=== PATIENT | male | born 1960 | race Caucasian/White ===

== ENCOUNTER 2019-02-15 14:03 | Observation (INO) ==
[2019-02-15] MEDS ORDERED: Isovue-370 500 ML BOTTLE IVP ONE (14:36)
[2019-02-15] MEDS ORDERED: Pantoprazole 40 MG VIAL IVP ONE (14:37)
[2019-02-15] MEDS ORDERED: 0.9 % Sodium Chloride 1,000 ML IVC ONE (14:38)
--- NOTE | 2019-02-15 14:47 | Emergency Department Note ---
Disposition Clinical Impression: Diverticulosis, Rectal bleeding Disposition: Admitted As Inpatient General Adult HPI - General Chief complaint: ED Abdominal Pain Stated complaint: rectal bleeding Time Seen by Provider: 02/15/19 14:12 Source: patient Mode of arrival: ambulatory Limitations: no limitations Nursing Notes Reviewed: Yes Vital Signs Reviewed: Yes - History of Present Illness HPI Narrative: Patient presents to the emergency department for evaluation of rectal bleeding. Patient states that he had severe epigastric pain last night with significant dyspepsia and reflux, and reports consuming multiple rolaids last night in an effort to alleviate his discomfort. He says that he got up to use the bathroom this morning, and found bright red blood filling the toilet bowel when he went to clean himself. He also reports cramping lower abdominal pain. Patient reports a second episode of rectal bleeding this morning, which prompted him to come in for evaluation. He does report significant stressors, as his father 2 days ago and there is a difficult relationship with his late father's . He denies any prior bleeding episodes, though he states he has had some bloody stools in the past. He reports having had two colonoscopies in the past, which showed polyps, but no other known abnormalities. He does report some nausea and shortness of breath at this time, but denies chest pain, fevers, chills, or other concerns at this time. Pt Subjective Complaint: rectal bleeding Onset (ago): hour(s) Pain Scale: 4 Quality: aching - Related Data Home Medications Medication Instructions Recorded Confirmed Amlodipine Besylate 10 mg PO DAILY 02/15/19 02/15/19 Brexpiprazole [Rexulti] 3 mg PO HS 02/15/19 02/15/19 Diclofenac Sodium 1 appl TP QID 02/15/19 02/15/19 Losartan Potassium 100 mg PO HS 02/15/19 02/15/19 Sertraline [Zoloft] 200 mg PO DAILY 02/15/19 02/15/19 clonazePAM [Clonazepam] 1 mg PO BID PRN 02/15/19 02/15/19 lamoTRIgine [Lamictal Xr] 200 mg PO DAILY 02/15/19 02/15/19 Allergies Allergy/AdvReac Type Severity Reaction Status Date / Time Penicillins [PCN] AdvReac Swelling Verified 10/23/18 13:24 of Lip/Tongue/Throat All systems ED: reviewed and negative except as stated. Constitutional: Denies: fever, chills, weakness, weight change Cardiovascular: Denies: chest pain, palpitations, dyspnea on exertion, edema, syncope Respiratory: Reports: dyspnea. Denies: cough Gastrointestinal: Reports: abdominal pain, hematochezia, other (dyspepsia) Musculoskeletal: Reports: back pain, arthralgia Integumentary: Denies: rash, abrasion, lesions Neurological: Denies: headache, weakness, numbness, paresthesias, confusion, abnormal gait, vertigo Past Medical History - Past Medical History Medical history: Reports: non-contributory, hypertension Surgical history: Reports: no surgical history Psychiatric history: Reports: anxiety, bipolar, depression - Social History Smoking Status: Never smoker Smokeless Tobacco Status: No Alcohol use: Reports: none Drug use: Reports: none Physical Exam - General Limitations: no limitations General appearance: alert, in no apparent distress - Head Head exam: atraumatic, normocephalic, normal inspection - Neck Neck exam: Present: normal inspection, full ROM, trachea midline - Chest Chest inspection: Present: normal inspection, symmetric chest wall rise - Respiratory Respiratory exam: Present: normal lung sounds bilaterally - Cardiovascular Cardiovascular exam: Present: regular rate, normal rhythm, normal heart sounds, +S1, +S2 - Abdominal Exam Abdominal exam: Present: soft, tenderness, hyperactive bowel sounds Abdominal tenderness: Present: epigastrium, moderate - Rectal Exam Farm Agent present during exam: Yes Rectal exam: Present: normal inspection, normal rectal tone. Absent: hemorrhoids, tenderness - Extremities Exam Extremities exam: Present: normal inspection, full ROM. Absent: tenderness, pedal edema - Neurological Exam Neurological exam: Present: alert, oriented X3 - Psychiatric Psychiatric exam: Present: normal affect, normal mood Course Course Narrative: Vital signs reviewed. At this time, we will get basic laboratory studies, as well as CT of the abdomen and pelvis. Orders placed for insertion of second IV, type and screen, and 80mg IV protonix. Anticipate hospital admission for further evaluation and management of GI bleed pending results of ED workup. - Reevaluation(s) Reevaluation #1: Laboratory and imaging studies reviewed. Initial hemoccult was negative; however, repeat exam and hemoccult testing was positive. Workup is largely unremarkable, with exception of diverticulosis noted on imaging. Patient will be admitted to the hospitalist service for further management, and has been accepted for admission. Vital Signs Temperature 99.2 F 02/15/19 14:04 Pulse Rate 85 02/15/19 14:04 Respiratory Rate 18 02/15/19 14:04 Blood Pressure 154/99 02/15/19 14:04 O2 Sat by Pulse Oximetry 97 02/15/19 14:04 Temperature 99.2 F 02/15/19 14:04 Pulse Rate 71 02/15/19 17:05 Respiratory Rate 16 02/15/19 17:05 Blood Pressure 131/92 02/15/19 17:05 O2 Sat by Pulse Oximetry 97 02/15/19 17:05 Oxygen Delivery Oxygen Delivery Room Air Medical Decision Making - Medical Records Medical records reviewed: Yes I reviewed the patient's medical records. - Lab Data Lab results reviewed: Yes I reviewed the patient's lab results. Result diagrams: 02/15/19 14:46 02/15/19 14:46 Lab Results 02/15/19 02/15/19 02/15/19 Range/Units 14:38 14:46 14:46 WBC 5.8 (4.3-11.1) K/mcL RBC 4.43 (4.19-5.50) M/mcL Hgb 14.7 (12.9-16.9) g/dL Hct 41.1 (37.5-50.1) % MCV 92.8 (83.0-100.0) fL MCH 33.2 (28.0-33.3) pg MCHC 35.8 H (31.6-35.5) g/dL RDW 11.8 (11.5-14.5) % Plt Count 181 (140-400) K/mcL MPV 9.4 (9.4-12.4) fL Immature Gran % 0.7 (0-4) % Seg Neutrophils % 69.6 % Lymphocytes % 21.4 % Monocytes % 6.4 % Eosinophils % 1.0 % Basophils % 0.9 % Neutrophils # 4.0 (1.6-8.9) K/mcL Lymphocytes # 1.2 (0.6-4.6) K/mcL Monocytes # 0.4 (0.0-1.3) K/mcL Eosinophils # 0.1 (0.0-0.6) K/mcL Basophils # 0.1 (0.0-0.2) K/mcL PT (9.4-12.1) Seconds INR Sodium 138 (136-145) mEq/L Potassium 3.7 (3.5-5.1) mEq/L Chloride 105 (98-107) mEq/L Carbon Dioxide 25 (23-29) mEq/L BUN 13 (6-20) mg/dL Creatinine 0.96 (0.70-1.30) mg/dL Est GFR ( Amer) > 60 (> 60) Est GFR (Non-Af Amer) > 60 (> 60) BUN/Creatinine Ratio 14 (6-26) Glucose 98 (70-105) mg/dL Calculated Osmolality 286 (280-300) Calcium 9.6 (8.6-10.3) mg/dL Total Bilirubin 0.6 (0.3-1.0) mg/dL AST 23 (13-39) Units/L ALT 31 (7-52) Units/L Alkaline Phosphatase 85 (34-104) Units/L Serum Total Protein 6.5 (6.4-8.9) g/dL Albumin 4.3 (3.5-5.7) g/dL Globulin 2.2 L (2.4-3.5) g/dL Albumin/Globulin Ratio 2.0 (1.1-2.2) Stool Occult Bld Scrn Negative (Negative) Blood Type Antibody Screen 02/15/19 02/15/19 02/15/19 Range/Units 14:46 14:46 15:17 WBC (4.3-11.1) K/mcL RBC (4.19-5.50) M/mcL Hgb (12.9-16.9) g/dL Hct (37.5-50.1) % MCV (83.0-100.0) fL MCH (28.0-33.3) pg MCHC (31.6-35.5) g/dL RDW (11.5-14.5) % Plt Count (140-400) K/mcL MPV (9.4-12.4) fL Immature Gran % (0-4) % Seg Neutrophils % % Lymphocytes % % Monocytes % % Eosinophils % % Basophils % % Neutrophils # (1.6-8.9) K/mcL Lymphocytes # (0.6-4.6) K/mcL Monocytes # (0.0-1.3) K/mcL Eosinophils # (0.0-0.6) K/mcL Basophils # (0.0-0.2) K/mcL PT 12.1 (9.4-12.1) Seconds INR 1.1 Sodium (136-145) mEq/L Potassium (3.5-5.1) mEq/L Chloride (98-107) mEq/L Carbon Dioxide (23-29) mEq/L BUN (6-20) mg/dL Creatinine (0.70-1.30) mg/dL Est GFR ( Amer) (> 60) Est GFR (Non-Af Amer) (> 60) BUN/Creatinine Ratio (6-26) Glucose (70-105) mg/dL Calculated Osmolality (280-300) Calcium (8.6-10.3) mg/dL Total Bilirubin (0.3-1.0) mg/dL AST (13-39) Units/L ALT (7-52) Units/L Alkaline Phosphatase (34-104) Units/L Serum Total Protein (6.4-8.9) g/dL Albumin (3.5-5.7) g/dL Globulin (2.4-3.5) g/dL Albumin/Globulin Ratio (1.1-2.2) Stool Occult Bld Scrn Positive A (Negative) Blood Type O POSITIVE Antibody Screen NEGATIVE - Radiology Data Radiology results reviewed: Yes I reviewed the patient's radiology results. - EKG Data EKG #1 EKG results narrative: EKG performed at 16:14 demonstrates NSR with rate [address] or T wave a bnormalities. No significant changes from prior study dated 05/29/2018. Critical Care Time Critical Care Time: Yes Total Critical Care Time: 35 Attestation: Critical care time 35 minutes managing patient's GI bleed. Attestation Statement - Attestation Attestation: Patient was seen with resident physician. I reviewed the history, physical, assessment and plan, and agree with the findings. I also personally evaluated this patient and had [id number] time with this patient. 58-year-old male presents emergency Department with bright red blood per rectum. Patient states she has had several episodes of bleeding from his rectum since this morning. He notes that last night he had a lot of esophageal reflux. He also had some crampy abdominal pain. He had some nausea and the throwing up in his mouth but no vomiting. He has not had diarrhea. He said the second episode scared him enough to come in. No history of bleeding disorders no history of ulcers no history of hemorrhoids. Review of systems as above remainder negative. Physical exam vital signs on arrival were stable. ENT is unremarkable. Heart regular rhythm and rate. Lungs clear. Abdomen is soft without guarding or rigidity. There is some mild tenderness in lower abdomen. Extremities are unremarkable. Neurologically intact. Skin no rashes. Psych normal. ED course. Patient had pictures of the stool which clearly showed blood. He d id not have hemorrhoids per resident examination. With his history of reflux we will start him on a proton pump inhibitor acutely we will also get a type and screen and lab tests. Initial H&H was okay. Hemoccult was positive. CT scan of the abdomen and pelvis revealed diverticulosis. I think is likely got bleeding from that. I think his abdominal discomfort is more cramping sensation with the colon trying to evacuate the blood. We spoke with the hospitalist service agreed to accept the patient. Patient will need to be admitted for serial H&H's and further evaluation as indicated. I agree with the resident physician assessment and plan. Critical care time 35 minutes managing patient's GI bleed.
[2019-02-15] MEDS ORDERED: Ondansetron 4 MG/2 ML VIAL IVP ONE (14:50)
[2019-02-15 15:23] LABS: Basophils # 0.1 K/mcL (0.0-0.2); Basophils % 0.9 %; Eosinophils # 0.1 K/mcL (0.0-0.6); Hematocrit 41.1 % (37.5-50.1); Hemoglobin 14.7 g/dL (12.9-16.9); Immature Granulocytes % 0.7 % (0-4); Lymphocytes # 1.2 K/mcL (0.6-4.6); Lymphocytes % 21.4 %; Mean Corpuscular HGB Conc 35.8 g/dL (31.6-35.5); Mean Corpuscular Hemoglobin 33.2 pg (28.0-33.3); Mean Corpuscular Volume 92.8 fL (83.0-100.0); Mean Platelet Volume 9.4 fL (9.4-12.4); Monocytes # 0.4 K/mcL (0.0-1.3); Monocytes % 6.4 %; Platelet Count 181 K/mcL (140-400); Red Blood Count 4.43 M/mcL (4.19-5.50); Red Cell Distribution Width 11.8 % (11.5-14.5); Segmented Neutrophils % 69.6 %
[2019-02-15 15:37] LABS: INR 1.1; Prothrombin Time 12.1 Seconds (9.4-12.1)
[2019-02-15 15:49] LABS: Alanine Aminotransferase 31 Units/L (7-52); Albumin 4.3 g/dL (3.5-5.7); Alkaline Phosphatase 85 Units/L (34-104); Aspartate Amino Transferase 23 Units/L (13-39); BUN/Creatinine Ratio 14 (6-26); Bilirubin,Total 0.6 mg/dL (0.3-1.0); Blood Urea Nitrogen 13 mg/dL (6-20); Calcium 9.6 mg/dL (8.6-10.3); Carbon Dioxide 25 mEq/L (23-29); Chloride 105 mEq/L (98-107); Globulin 2.2 g/dL (2.4-3.5); Glucose 98 mg/dL (70-105); Osmolality,Calculated 286 (280-300); Potassium 3.7 mEq/L (3.5-5.1); Sodium 138 mEq/L (136-145); Total Protein 6.5 g/dL (6.4-8.9); eGFR For Non-African Americans > 60 (> 60)
[2019-02-15] MEDS ORDERED: *HR* LORazepam 2 MG/ML VIAL IVP ONE (16:32)
[2019-02-15] MEDS ORDERED: Ondansetron 4 MG/2 ML VIAL IVP PRN (17:04)
[2019-02-15] MEDS ORDERED: Naloxone 0.4 MG/ML INJ IVP PRN (17:04)
--- NOTE | 2019-02-15 17:15 | Internal Med History&Physical ---
Date of Encounter: 02/15/19 Time of Encounter: 17:09 Internal Medicine - H&P: HPI Chief complaint: blood in stool Admitted From: Home Plans for Post Hospital Care: Home History of present illness: Mr. Pollack is a 58 year old male with PMH HTN and depression presented to [facility] on 02/15/19 with complaints of ABD pain and BRBPR. He was olaced in observation status for further work-up and treatment. Information obtained from chart review and patient report. Patient reported ABD discomfort that start evening prior to arrival. Described as achy and throbbing at times. Localized to mid-abdomen. No aggravating or alleviating factors. Patient also reported "acid reflex sensation" through the night. Says he took several doses of tums with relief. Says he woke up this morning and had 3 episodes of stool with bright red blood. After third episode he decided to come to the ER. Has some mild ABD discomfort but overall improved. No further bloody stools. Denied Etoh use, no steroid or NSAID use. Past Med Surg Social Fam HX - Past Medical History Medical history: non-contributory, hypertension Additional medical history: Bipolar Psychiatric history: anxiety, bipolar, depression - Past Surgical History Surgical History: no surgical history Additional surgical history: left shoulder - Social History Smoking Status: Never smoker Smokeless Tobacco Status: No Alcohol use: none Drug use: none - Additional Family History Additional family history: family hx reviewed and non-contributory Internal Medicine - H&P: Meds Amlodipine Besylate 10 mg PO DAILY 02/15/19 [History] Brexpiprazole [Rexulti] 3 mg PO HS 02/15/19 [History] Diclofenac Sodium 1 appl TP QID 02/15/19 [History] Losartan Potassium 100 mg PO HS 02/15/19 [History] Sertraline [Zoloft] 200 mg PO DAILY 02/15/19 [History] clonazePAM [Clonazepam] 1 mg PO BID PRN 02/15/19 [History] lamoTRIgine [Lamictal Xr] 200 mg PO DAILY 02/15/19 [History] Allergy/AdvReac Type Severity Reaction Status Date / Time Penicillins [PCN] AdvReac Swelling Verified 10/23/18 13:24 of Lip/Tongue/Throat All Systems PM: A 10-system review of systems was performed and is negative for pertinent findings except as documented above in the HPI. - Constitutional Constitutional: no chills, no fever(s), no night sweats - EENT Eyes: no change in vision, no discharge, no pain, no photophobia Ears: no ear discharge, no ear pain, no tinnitus Nose, mouth and throat: no dysphagia, no nasal discharge, no neck pain, no sore throat - Cardiovascular Cardiovascular ROS IM: no chest pain, no diaphoresis, no dyspnea, no lightheadedness, no palpitations, no syncope - Respiratory Respiratory: no cough, no dyspnea, no wheezing, no excessive phlegm production - Gastrointestinal Gastrointestinal: abdominal pain, hematochezia, no diarrhea, no hematemesis, no melena, no nausea, no vomiting - Musculoskeletal Musculoskeletal ROS IM: no numbness, no tingling - Integumentary Integumentary IM: no rash, no unusual bruising - Neurological Neurological ROS: no confusion, no convulsions, no focal weakness, no numbness, no tingling, no tremor(s) - Hematologic/Lymphatic Hematologic/Lymphatic: no easy bruising - Constitutional Vitals: Temp Pulse Resp BP Pulse Ox 99.2 F 71 16 131/92 97 02/15/19 14:04 02/15/19 17:05 02/15/19 17:05 02/15/19 17:05 02/15/19 17:05 General appearance: Present: A&O X 3, pleasant, no acute distress Exam: . - Head Head exam: Present: atraumatic, normocephalic - Eye Eye exam: Present: PERRL, conjuntiva pink, sclera anicteric Pupils: Present: PERRL - Neck Neck exam general surgery: Present: supple, trachea midline. Absent: lymphadenopathy - Respiratory Respiratory exam: Present: CTAB. Absent: accessory muscle use, rales, rhonchi, wheezes - Cardiovascular Cardiovascular exam: Present: RRR, +S1, +S2. Absent: diastolic murmur, gallop, rubs, systolic murmur - GI/Abdominal GI/Abdominal exam: Present: normal bowel sounds, soft, no peritoneal signs. Absent: distended, tenderness - Extremities Exam Extremities exam: Present: warm, radial pulses palpable and symmetrical. Absent: calf tenderness, cyanotic, pedal edema - Neurological Exam Neurological exam: Present: CN II-XII intact, oriented X3, no focal deficits. Absent: pronater drift, facial droop, speech deficit - Skin Skin exam: Present: dry, intact Internal Med - H&P Results - Labs CBC & Chem 7: 02/15/19 14:46 02/15/19 14:46 Labs: Short CBC 02/15/19 Range/Units 14:46 WBC 5.8 (4.3-11.1) K/mcL Hgb 14.7 (12.9-16.9) g/dL Hct 41.1 (37.5-50.1) % Plt Count 181 (140-400) K/mcL Neutrophils # 4.0 (1.6-8.9) K/mcL BMP 02/15/19 14:46 Sodium 138 Potassium 3.7 Chloride 105 Carbon Dioxide 25 BUN 13 Creatinine 0.96 Glucose 98 Calcium 9.6 Liver Function 02/15/19 Range/Units 14:46 Total Bilirubin 0.6 (0.3-1.0) mg/dL AST 23 (13-39) Units/L ALT 31 (7-52) Units/L Alkaline Phosphatase 85 (34-104) Units/L Albumin 4.3 (3.5-5.7) g/dL - Impressions ITS Impressions Abdomen/Pelvis CT 02/15/19 14:59 IMPRESSION: No acute intra-abdominal abnormality or explanation for rectal bleeding. Diverticulosis without evidence of diverticulitis. D/ / Nathanael Whyte MD / Nathanael Whyte MD Interpreting Provider: Nathanael Whyte MD - Assessment and Plan (1) Hematochezia Current Visit: Yes Status: Acute Assessment and plan: presented with 3 episodes of hematochezia with associated ABD discomfort. Occult stool positive in ED. ABD CT showed diverticulosis without evidence of diverticulitis, otherwise non-acute. No active bleeding. Denied Etoh use, no steroids or NSAIDs. Hgb 14.7. No GI available over the weekend (general surgery for active bleeds only). Cont IV PPI, clear liquid diet. NPO at midnight for now until see trend in Hgb. Monitor H&H. If Hgb stable and no further bleeding then consider outpatient GI follow-up (2) HTN (hypertension) Current Visit: Yes Status: Acute Assessment and plan: per hx. BP controlled. Cont home BP medications. Monitor BP and titrate PRN Qualifiers: Hypertension type: essential hypertension Qualified Code(s): I10 - Essential (primary) hypertension (3) Depression Current Visit: Yes Status: Acute Assessment and plan: per hx. Cont home lamictal, zoloft Qualifiers: Depression Type: major depressive disorder Major depression recurrence: unspecified whether recurrent Major depression episode severity: unspecified Qualified Code(s): F32.9 - Major depressive disorder, single episode, unspecified (4) DVT prophylaxis Current Visit: Yes Status: Acute Assessment and plan: SCDs - Time Spent With Patient Total time spent is greater than 50% in coordination of care (as documented) at patient's floor/unit and/or counseling patient:
[2019-02-15] MEDS ORDERED: clonazePAM 1 MG TABLET PO PRN (17:22)
[2019-02-15] MEDS ORDERED: 0.9 % Sodium Chloride 1,000 ML IVC SCH (17:30)
[2019-02-15] MEDS ORDERED: Acetaminophen 325 MG TABLET PO PRN (18:47)
[2019-02-15] MEDS ORDERED: *HR* OxyCODONE/APAP 5/325 TABLET PO PRN (18:48)
[2019-02-15] MEDS ORDERED: (Brexpiprazole [Rexulti] 3 MG) PO SCH (21:45)
[2019-02-15 22:44] LABS: Hematocrit 38.4 % (37.5-50.1); Hemoglobin 14.2 g/dL (12.9-16.9)
[2019-02-16 07:25] LABS: Hemoglobin 14.2 g/dL (12.9-16.9); Mean Corpuscular HGB Conc 35.5 g/dL (31.6-35.5); Mean Corpuscular Hemoglobin 33.3 pg (28.0-33.3); Mean Corpuscular Volume 93.7 fL (83.0-100.0); Mean Platelet Volume 9.3 fL (9.4-12.4); Platelet Count 170 K/mcL (140-400); Red Blood Count 4.27 M/mcL (4.19-5.50); Red Cell Distribution Width 12.1 % (11.5-14.5)
[2019-02-16 07:43] LABS: Alanine Aminotransferase 27 Units/L (7-52); Albumin 4.1 g/dL (3.5-5.7); Albumin/Globulin Ratio 1.9 (1.1-2.2); Alkaline Phosphatase 69 Units/L (34-104); Aspartate Amino Transferase 21 Units/L (13-39); BUN/Creatinine Ratio 12 (6-26); Bilirubin,Total 0.7 mg/dL (0.3-1.0); Blood Urea Nitrogen 12 mg/dL (6-20); Calcium 8.8 mg/dL (8.6-10.3); Carbon Dioxide 27 mEq/L (23-29); Chloride 107 mEq/L (98-107); Globulin 2.2 g/dL (2.4-3.5); Glucose 85 mg/dL (70-105); Osmolality,Calculated 297 (280-300); Potassium 3.7 mEq/L (3.5-5.1); Sodium 144 mEq/L (136-145); Total Protein 6.3 g/dL (6.4-8.9); eGFR For Non-African Americans > 60 (> 60)
[2019-02-16] MEDS ORDERED: amLODIPine 5 MG TABLET PO SCH (09:00)
[2019-02-16] MEDS ORDERED: Pantoprazole 40 MG VIAL IVP SCH (09:00)
[2019-02-16] MEDS ORDERED: LAMOTRIGINE 200 MG PO SCH (09:00)
--- NOTE | 2019-02-16 11:17 | Discharge Summary ---
- NOTES TO OUTPATIENT PROVIDER Notes to Outpatient Provider: f/u with PCP within a week. Orders not resulted at time of discharge: Pending orders 02/15/19 14:40 ECG 12 lead ECG [ECG] Stat 02/17/19 04:00 Complete Blood Count w/o Diff [HEME] AM 0400 Comprehensive Metabolic Panel AM 0400 02/18/19 04:00 Complete Blood Count w/o Diff [HEME] AM 0400 Comprehensive Metabolic Panel AM 0400 02/19/19 04:00 Complete Blood Count w/o Diff [HEME] AM 0400 Comprehensive Metabolic Panel AM 0400 02/20/19 04:00 Complete Blood Count w/o Diff [HEME] AM 0400 Comprehensive Metabolic Panel AM 0400 Date of Encounter: 02/16/19 Time of Encounter: 11:15 - Discharge Diagnosis (1) Hematochezia Priority: Primary Status: Acute (2) HTN (hypertension) Priority: Secondary Status: Chronic Qualifiers: Hypertension type: essential hypertension Qualified Code(s): I10 - Essential (primary) hypertension (3) Depression Priority: Secondary Status: Chronic Qualifiers: Depression Type: major depressive disorder Major depression recurrence: unspecified whether recurrent Major depression episode severity: unspecified Qualified Code(s): F32.9 - Major depressive disorder, single episode, unspecified (4) DVT prophylaxis Priority: Primary Status: Acute Hospital course: Mr. Pollack is a 58 year old male with PMH HTN and depression presented to [facility] on 02/15/19 with complaints of ABD pain and BRBPR. He was olaced in observation status for further work-up and treatment. Information obtained from chart review and patient report. Patient reported ABD discomfort that start evening prior to arrival. Described as achy and throbbing at times. Localized to mid-abdomen. No aggravating or alleviating factors. Patient also reported "acid reflex sensation" through the night. Says he took several doses of tums with relief. Says he woke up this morning and had 3 episodes of stool with bright red blood. After third episode he decided to come to the ER. Has some mild ABD discomfort but overall improved. No further bloody stools. Denied Etoh use, no steroid or NSAID use. His vital signs were stable. Serial H/H remains at 14. CT abd/pelvis showed diverticulosis but no signs of infection. Pt denies further GI bleeding or bloody stool. He is stable and will be discharged home today. f/u with PCP within a week. Discharge discussed with: patient Time spent discussing smoking cessation with patient: more than 10 minutes - Time Spent with Patient Total time spent providing and/or coordinating discharge services: Time spent: Greater than 30 minutes - Discharge Medications Prescriptions: Continue Diclofenac Sodium 1 appl TP QID Sertraline [Zoloft] 200 mg PO DAILY Brexpiprazole [Rexulti] 3 mg PO HS Losartan Potassium 100 mg PO HS lamoTRIgine [Lamictal Xr] 200 mg PO DAILY clonazePAM [Clonazepam] 1 mg PO BID PRN PRN Reason: Anxiety Amlodipine Besylate 10 mg PO DAILY Home Medications: Amlodipine Besylate 10 mg PO DAILY 02/15/19 [History] Brexpiprazole [Rexulti] 3 mg PO HS 02/15/19 [History] Diclofenac Sodium 1 appl TP QID 02/15/19 [History] Losartan Potassium 100 mg PO HS 02/15/19 [History] Sertraline [Zoloft] 200 mg PO DAILY 02/15/19 [History] clonazePAM [Clonazepam] 1 mg PO BID PRN 02/15/19 [History] lamoTRIgine [Lamictal Xr] 200 mg PO DAILY 02/15/19 [History] Allergies/Adverse Reactions: Allergy/AdvReac Type Severity Reaction Status Date / Time Penicillins [PCN] AdvReac Swelling Verified 10/23/18 13:24 of Lip/Tongue/Throat Date of admission: 02/15/19 17:13 Primary care physician: Angeles Acosta Anticipated date of discharge: 02/16/19 - Constitutional Vitals: Temp Pulse Resp BP Pulse Ox 97.9 F 62 14 116/79 93 02/16/19 06:31 02/16/19 06:31 02/16/19 06:31 02/16/19 06:31 02/16/19 06:31 General appearance: Present: A&O X 3, pleasant, no acute distress Exam: PHYSICAL EXAMINATION: GENERAL APPEARANCE: The patient is alert, oriented and in no acute distress. HEENT: Head is normocephalic. The sinuses are nontender. Pupils are equal and reactive. The nares are patent. Oropharynx clear without lesions. NECK: Supple without lymphadenopathy. HEART: Regular rate and rhythm. LUNGS: No crackles or wheezes are heard. ABDOMEN: Soft, nontender, nondistended with good bowel sounds heard. Inguinal area is normal. EXTREMITIES: Without cyanosis, clubbing or edema. NEUROLOGICAL: Gross nonfocal. SKIN: Warm and dry without any rash. - Patient Status Disposition: Home, Self-Care Condition: Fair Functional capacity at discharge: independent ambulation Overall status at discharge: patient is progressing back to baseline - Discharge Instructions Follow Up With: Luisa Wilson DO [Primary Care Provider] - - Diet and Activity Activity: increase activity as tolerated Diet: advance to your usual diet - VTE Documentation of Mechanical Device: Intermittent pneumatic compression device
[2019-02-16 11:20] VITALS: BP 111/76
--- NOTE | 2019-02-17 09:57 | Electrocardiograph Report ---
[place] [id number] Test Date: 2019-02-15 Pat Name: David Pollack Department: [id number] Room: 3B65 Gender: M Order Editor: : 1960 Requested By: Juana Holden Order Number: [id number] Reading MD: Sergo Granados Measurements Intervals [place] Rate: 71 P: 47 [place]: 131 QRS: 71 QRSD: 92 T: -58 QT: 354 QTc: 385 Interpretive Statements Sinus rhythm Nonspecific ST-T changes Electronically Signed On 02-17-2019 9:55:54 EDT by Sergo Granados
== END 2019-02-16 12:18 | disposition home or self-care (01) ==
LOC: EMEROOARM 14:03 → 3BNU 14:03
PROVIDERS: ADMIT Internal Medicine Nephrology; ATTEND Student in an Organized Health Care Education/Training Program

== ENCOUNTER 2019-08-14 12:37 | Observation (INO) ==
--- NOTE | 2019-08-14 13:16 | Emergency Department Note ---
Disposition Clinical Impression: Chest pain, History of hypertension, Abnormal EKG, Anxiety, Depression, Elevated lipase Disposition: Admitted As Inpatient Referrals: Luisa Wilson DO [Primary Care Provider] - Forms: ED Satisfaction Letter Time of Disposition: 15:39 General Adult HPI - General Chief complaint: ED Chest Pain Stated complaint: CP Time Seen by Provider: 08/14/19 13:13 - History of Present Illness HPI Narrative: 58-year-old male reports emergency department complaining of left-sided chest pain. The pain has been intermittent for the last 2 weeks. He described a sharp stabbing intermittent pain in the left lateral rib area but now that pain has changed and he is developing a squeezing sensation in his heart. There is no history of arm or jaw pain. The patient does not describe exertional chest pain or shortness of breath. He states he feels pressure and grabbing around his heart. There is no history of cough or fever no runny nose or pain or sore throat. The patient has no history of CAD DVT PE or cancer. He has no history of aneurysm. There is no history of rash on the chest. The patient denies any flank pain or urinary problems no abdominal pain vomiting or diarrhea. The patient states he has been anxious, he has also been depressed. He denies suicidal or homicidal ideology. The patient denies a history of hyperglycemia or diabetes, no history of hypercholesterolemia, is nonsmoker, he states he has had negative stress test in the past. He does describe a history of hypertension however. No early coronary disease in the family noted. No prior cardiac stent. He is not anticoagulated. There is no history of trauma. No history of leg swelling or pain no syncope no coughing of blood. Pain Scale: 7 - Related Data Home Medications Medication Instructions Recorded Confirmed Amlodipine Besylate 10 mg PO DAILY 02/15/19 02/15/19 Brexpiprazole [Rexulti] 3 mg PO HS 02/15/19 02/15/19 Diclofenac Sodium 1 appl TP QID 02/15/19 02/15/19 Losartan Potassium 100 mg PO HS 02/15/19 02/15/19 Sertraline [Zoloft] 200 mg PO DAILY 02/15/19 02/15/19 clonazePAM [Clonazepam] 1 mg PO BID PRN 02/15/19 02/15/19 lamoTRIgine [Lamictal Xr] 200 mg PO DAILY 02/15/19 02/15/19 Allergies Allergy/AdvReac Type Severity Reaction Status Date / Time Penicillins [PCN] AdvReac Swelling Verified 08/14/19 12:38 of Lip/Tongue/Throat All systems ED: reviewed and negative except as stated. Past Medical History - Past Medical History Medical history: Reports: non-contributory, hypertension Surgical history: Reports: no surgical history Psychiatric history: Reports: anxiety, bipolar, depression - Social History Smoking Status: Never smoker Smokeless Tobacco Status: No Alcohol use: Reports: none Drug use: Reports: none Physical Exam - General Limitations: no limitations General appearance: alert, in no apparent distress - Head Head exam: atraumatic, normocephalic, normal inspection - Eye Eye exam: Present: normal appearance, PERRL, EOMI - ENT ENT exam: normal exam, normal oropharynx, mucous membranes moist, TM's normal bilaterally, normal external ear exam - Neck Neck exam: Present: normal inspection, full ROM, trachea midline - Chest Chest inspection: Present: normal inspection, symmetric chest wall rise. Absent: tenderness, rash - Respiratory Respiratory exam: Present: normal lung sounds bilaterally. Absent: respiratory distress, prolonged expiratory phase - Cardiovascular Cardiovascular exam: Present: regular rate, normal rhythm, normal heart sounds - Abdominal Exam Abdominal exam: Present: soft, Non-Tender, normal bowel sounds. Absent: tenderness, distention, guarding, rebound, rigidity - Extremities Exam Extremities exam: Present: normal inspection, full ROM, normal capillary refill. Absent: tenderness, pedal edema, joint swelling, calf tenderness - Expanded Lower Extremity Exam Neurovascular/Tendon exam: Present: normal capillary refill. Absent: motor deficit, sensory deficit, tendon deficit, extremity cold to touch, pallor - Back Exam Back exam: Present: normal inspection, full ROM. Absent: tenderness, CVA tenderness (R), CVA tenderness (L), vertebral tenderness - Neurological Exam Neurological exam: Present: alert, oriented X3, CN II-XII intact. Absent: motor sensory deficit - Psychiatric Psychiatric exam: Present: normal affect, normal mood - Skin Skin exam: Present: warm, dry, intact, normal color Course Vital Signs Temperature 98.6 F 08/14/19 12:39 Pulse Rate 74 08/14/19 12:39 Respiratory Rate 15 08/14/19 12:39 Blood Pressure 136/91 08/14/19 12:39 O2 Sat by Pulse Oximetry 97 08/14/19 12:39 Temperature 98.6 F 08/14/19 12:39 Pulse Rate 71 08/14/19 15:24 Respiratory Rate 18 08/14/19 15:24 Blood Pressure 130/83 08/14/19 15:24 O2 Sat by Pulse Oximetry 96 08/14/19 15:24 Oxygen Delivery Oxygen Delivery Room Air Medical Decision Making - MDM Narrative Medical decision making narrative: The patient states he had been having intermittent chest pain stabbing sharp pain on the left, the nature of the pain has now changed and he is having chest pressure in the left chest, he describes a squeezing sensation pressure around his heart. The patient has no history of DVT PE or cancer. There is no history of coughing up blood or syncope. No leg swelling or pain. The patient denies any coronary disease, he had a remote stress test which was negative. The patient does have a history of hypertension, he is older, his EKG is not entirely normative. The patient's heart score is 4. He was given aspirin emergency department. He feels somewhat uncomfortable going home. He felt he might need to stay in the hospital. Based on the patient's complaints of chest pain, elevated heart score, abnormal EKG, I thought it would be appropriate to admit the patient to the hospital for observation. The patient highly concurs. He does have an element of anxiety and depression which may be contributory. No suicidality or homicidality noted. I discussed the case with the hospitalist on-call who has accepted the patient to their care. The patient is currently stable pending admission. Lipase minimally elevated. No abdominal tenderness noted. - Lab Data Lab results reviewed: Yes I reviewed the patient's lab results. Result diagrams: 08/14/19 12:50 08/14/19 12:50 Lab Results 08/14/19 08/14/19 Range/Units 12:50 12:50 WBC 6.7 (4.3-11.1) K/mcL RBC 4.59 (4.19-5.50) M/mcL Hgb 15.3 (12.9-16.9) g/dL Hct 42.6 (37.5-50.1) % MCV 92.8 (83.0-100.0) fL MCH 33.3 (28.0-33.3) pg MCHC 35.9 H (31.6-35.5) g/dL RDW 12.0 (11.5-14.5) % Plt Count 191 (140-400) K/mcL MPV 9.5 (9.4-12.4) fL Immature Gran % 0.4 (0-4) % Seg Neutrophils % 70.6 % Lymphocytes % 21.8 % Monocytes % 5.1 % Eosinophils % 1.5 % Basophils % 0.6 % Neutrophils # 4.8 (1.6-8.9) K/mcL Lymphocytes # 1.5 (0.6-4.6) K/mcL Monocytes # 0.3 (0.0-1.3) K/mcL Eosinophils # 0.1 (0.0-0.6) K/mcL Basophils # 0.0 (0.0-0.2) K/mcL Sodium 141 (136-145) mEq/L Potassium 3.4 L (3.5-5.1) mEq/L Chloride 107 (98-107) mEq/L Carbon Dioxide 27 (23-29) mEq/L BUN 17 (6-20) mg/dL Creatinine 0.95 (0.70-1.30) mg/dL Est GFR ( Amer) > 60 (> 60) Est GFR (Non-Af Amer) > 60 (> 60) BUN/Creatinine Ratio 18 (6-26) Glucose 128 H (70-105) mg/dL Calculated Osmolality 295 (280-300) Calcium 9.3 (8.6-10.3) mg/dL Total Bilirubin 0.6 (0.3-1.0) mg/dL Direct Bilirubin 0.1 (0.0-0.2) mg/dL Indirect Bilirubin 0.5 (0.0-1.2) mg/dL AST 24 (13-39) Units/L ALT 33 (7-52) Units/L Alkaline Phosphatase 100 (34-104) Units/L Troponin I < 0.03 (< 0.04) ng/mL C-Reactive Protein < 5 (Less than 10) mg/L Serum Total Protein 6.9 (6.4-8.9) g/dL Albumin 4.6 (3.5-5.7) g/dL Globulin 2.3 L (2.4-3.5) g/dL Albumin/Globulin Ratio 2.0 (1.1-2.2) Lipase 318 H (11-82) Units/L - Radiology Data Radiology results reviewed: Yes I reviewed the patient's radiology results.
[2019-08-14 13:27] LABS: Basophils % 0.6 %; Eosinophils # 0.1 K/mcL (0.0-0.6); Eosinophils % 1.5 %; Hematocrit 42.6 % (37.5-50.1); Hemoglobin 15.3 g/dL (12.9-16.9); Immature Granulocytes % 0.4 % (0-4); Lymphocytes # 1.5 K/mcL (0.6-4.6); Lymphocytes % 21.8 %; Mean Corpuscular HGB Conc 35.9 g/dL (31.6-35.5); Mean Corpuscular Hemoglobin 33.3 pg (28.0-33.3); Mean Corpuscular Volume 92.8 fL (83.0-100.0); Mean Platelet Volume 9.5 fL (9.4-12.4); Monocytes # 0.3 K/mcL (0.0-1.3); Monocytes % 5.1 %; Neutrophils # 4.8 K/mcL (1.6-8.9); Platelet Count 191 K/mcL (140-400); Red Blood Count 4.59 M/mcL (4.19-5.50); Segmented Neutrophils % 70.6 %; White Blood Count 6.7 K/mcL (4.3-11.1)
[2019-08-14 13:33] LABS: BUN/Creatinine Ratio 18 (6-26); Blood Urea Nitrogen 17 mg/dL (6-20); Calcium 9.3 mg/dL (8.6-10.3); Carbon Dioxide 27 mEq/L (23-29); Chloride 107 mEq/L (98-107); Glucose 128 mg/dL (70-105); Osmolality,Calculated 295 (280-300); Potassium 3.4 mEq/L (3.5-5.1); Sodium 141 mEq/L (136-145); Troponin I < 0.03 ng/mL (< 0.04); eGFR For African Americans > 60 (> 60); eGFR For Non-African Americans > 60 (> 60)
[2019-08-14 13:39] LABS: C-Reactive Protein < 5 mg/L (Less than 10); Lipase 318 Units/L (11-82)
[2019-08-14 14:11] LABS: Alanine Aminotransferase 33 Units/L (7-52); Albumin 4.6 g/dL (3.5-5.7); Alkaline Phosphatase 100 Units/L (34-104); Aspartate Amino Transferase 24 Units/L (13-39); Bilirubin,Direct 0.1 mg/dL (0.0-0.2); Bilirubin,Indirect 0.5 mg/dL (0.0-1.2); Bilirubin,Total 0.6 mg/dL (0.3-1.0); Globulin 2.3 g/dL (2.4-3.5); Total Protein 6.9 g/dL (6.4-8.9)
[2019-08-14] MEDS ORDERED: Aspirin 325 MG TABLET PO ONE (15:16)
[2019-08-14] MEDS ORDERED: Naloxone 0.4 MG/ML INJ IVP PRN (16:15)
[2019-08-14] MEDS ORDERED: hydrOXYzine pamoate 25 MG CAPSULE PO PRN (16:24)
[2019-08-14] MEDS ORDERED: clonazePAM 1 MG TABLET PO PRN (16:24)
--- NOTE | 2019-08-14 16:36 | Internal Med History&Physical ---
Date of Encounter: 08/14/19 Time of Encounter: 16:31 Internal Medicine - H&P: HPI Chief complaint: chest pain Admitted From: Home Plans for Post Hospital Care: Home History of present illness: Mr. Pollack is a 58 year old male with a past medical history of hypertension, anxiety and depression. He presents our facility today with a complaint of a one month duration of an aching left-sided chest pain which he rates as 5/10 in intensity. The pain is nonradiating and patient has not identified any aggravating or relieving factors for it. He states that it is basically constant and he has felt it every day for the last 2 weeks. He denies associated shortness of breath, recent upper respiratory tract infection symptoms, fever, chills, palpitations and lightheadedness. Past Med Surg Social Fam HX - Past Medical History Medical history: hypertension Additional medical history: Bipolar Psychiatric history: anxiety, bipolar, depression - Past Surgical History Surgical History: no surgical history Additional surgical history: left shoulder - Social History Smoking Status: Never smoker Smokeless Tobacco Status: No Alcohol use: none Drug use: none - Family History Mother Living Status: Still Living Hx Family Cardiac Disorders: Yes Father Living Status: Cause of : Heart failure Hx Family Cardiac Disorders: Yes Internal Medicine - H&P: Meds Amlodipine Besylate 10 mg PO DAILY 02/15/19 [History] Brexpiprazole [Rexulti] 3 mg PO HS 02/15/19 [History] Losartan Potassium 100 mg PO HS 02/15/19 [History] Sertraline [Zoloft] 200 mg PO DAILY 02/15/19 [History] clonazePAM [Clonazepam] 1 mg PO BID PRN 02/15/19 [History] lamoTRIgine [Lamictal Xr] 200 mg PO DAILY 02/15/19 [History] Vortioxetine Hydrobromide [Trintellix] 5 mg PO DAILY 08/14/19 [History] hydrOXYzine HCl [Hydroxyzine HCl] 25 mg PO TID PRN 08/14/19 [History] Allergy/AdvReac Type Severity Reaction Status Date / Time Penicillins [PCN] AdvReac Swelling Verified 08/14/19 12:38 of Lip/Tongue/Throat All Systems PM: A 10-system review of systems was performed and is negative for pertinent findings except as documented above in the HPI. Review of systems: GENERAL: No fever or chills HEENT: No rhinorrhea, No sore throat, No ear pain or discharge, No dysphagia or odynophagia PULMONARY: No cough, No Sputum production, No dyspnea on exertion CARDIOVASCULAR: No palpitations, No shortness of breath, No PND, No orthopnea GASTROINTESTINAL: No abdominal pain, No nausea, No vomiting, No constipation, No diarrhea, No hematemesis, No hematochezia MUSKULOSKELETAL: No edema, No swelling, No pain INTEGUMENTARY: No new skin lesions NERVOUS SYSTEM: No Dizziness, No weakness, No slurred speech, No diplopia or blurred/ loss vision, No numbness, No tinglng sensation. - Constitutional Vitals: Temp Pulse Resp BP Pulse Ox 37.0 C 71 18 130/83 96 08/14/19 12:39 08/14/19 15:24 08/14/19 15:24 08/14/19 15:24 08/14/19 15:24 Exam: GENERAL: Not in distress. Alert and Oriented HEENT: EOMI, PERRLA MOUTH: Moist oral mucosa NECK:No JVD, No lymph nodes. CHEST AND LUNGS: Normal breath sounds, no wheezes or crackles HEART: S1 and S2 normal, no murmurs ABDOMEN: Soft, nontender, no organomegaly SKIN: Normal color, no rashes , no lesions EXTREMITIES: No deformity, no edema, no tenderness, no joint swelling or clubbing NEUROLOGICAL: Normal cognition, normal motor and sensory exam. Internal Med - H&P Results - Labs CBC & Chem 7: 08/14/19 12:50 08/14/19 12:50 Labs: Short CBC 08/14/19 Range/Units 12:50 WBC 6.7 (4.3-11.1) K/mcL Hgb 15.3 (12.9-16.9) g/dL Hct 42.6 (37.5-50.1) % Plt Count 191 (140-400) K/mcL Neutrophils # 4.8 (1.6-8.9) K/mcL BMP 08/14/19 12:50 Sodium 141 Potassium 3.4 L Chloride 107 Carbon Dioxide 27 BUN 17 Creatinine 0.95 Glucose 128 H Calcium 9.3 Cardiac Enzymes 08/14/19 Range/Units 12:50 Troponin I < 0.03 (< 0.04) ng/mL Liver Function 08/14/19 Range/Units 12:50 Total Bilirubin 0.6 (0.3-1.0) mg/dL Direct Bilirubin 0.1 (0.0-0.2) mg/dL AST 24 (13-39) Units/L ALT 33 (7-52) Units/L Alkaline Phosphatase 100 (34-104) Units/L Albumin 4.6 (3.5-5.7) g/dL - Impressions ITS Impressions Chest X-Ray 08/14/19 12:56 IMPRESSION: No acute cardiopulmonary findings. D/ / Didi Henning MD / Didi Henning MD Interpreting Provider: Didi Henning MD - Assessment and Plan (1) Chest pain Current Visit: Yes Status: Acute Assessment and plan: Patient presented with chest pain of a month's duration Pain without aggravating or relieving factors. Patient has a heart score 3, placing him at at a low probability for MACE troponin negative CXR which i personally reviewed shows no acute cardiopulmonary process. EKG without ischemic changes. Monitor Cycle troponins. Qualifiers: Chest pain type: precordial pain Qualified Code(s): R07.2 - Precordial pain (2) Elevated lipase Current Visit: Yes Status: Acute Assessment and plan: Pateint with a lipase of 318 He denies alcohol misuse and abdominal pain. Soft nontender abdomen on exam Will repeat lipase in the morning. Lipid panel in morning. Monitor patient for now. (3) Anxiety Current Visit: Yes Status: Acute Assessment and plan: Continue home meds (4) Depression Current Visit: Yes Status: Chronic Assessment and plan: Continue home meds Qualifiers: Depression Type: major depressive disorder Major depression recurrence: r ecurrent Active/Remission status: in remission of unspecified degree Qualified Code(s): F33.40 - Major depressive disorder, recurrent, in remission, unspecified (5) HTN (hypertension) Current Visit: Yes Status: Chronic Assessment and plan: Currently controlled. Continue home meds. Qualifiers: Hypertension type: essential hypertension Qualified Code(s): I10 - Essential (primary) hypertension (6) DVT prophylaxis Current Visit: No Status: Acute Assessment and plan: Encourage ambulation - Time Spent With Patient Total time spent is greater than 50% in coordination of care (as documented) at patient's floor/unit and/or counseling patient:
[2019-08-14] MEDS ORDERED: Brexpiprazole [Rexulti] 3 MG PO SCH (21:00)
[2019-08-15 04:39] LABS: Basophils % 0.4 %; Eosinophils # 0.2 K/mcL (0.0-0.6); Eosinophils % 2.5 %; Hematocrit 40.5 % (37.5-50.1); Hemoglobin 14.2 g/dL (12.9-16.9); Immature Granulocytes % 0.4 % (0-4); Lymphocytes # 2.2 K/mcL (0.6-4.6); Lymphocytes % 30.9 %; Mean Corpuscular HGB Conc 35.1 g/dL (31.6-35.5); Mean Corpuscular Hemoglobin 33.3 pg (28.0-33.3); Mean Corpuscular Volume 94.8 fL (83.0-100.0); Mean Platelet Volume 9.4 fL (9.4-12.4); Monocytes # 0.6 K/mcL (0.0-1.3); Neutrophils # 4.1 K/mcL (1.6-8.9); Platelet Count 177 K/mcL (140-400); Red Blood Count 4.27 M/mcL (4.19-5.50); Segmented Neutrophils % 57.8 %; White Blood Count 7.1 K/mcL (4.3-11.1)
[2019-08-15 04:57] LABS: BUN/Creatinine Ratio 16 (6-26); Blood Urea Nitrogen 16 mg/dL (6-20); Calcium 8.8 mg/dL (8.6-10.3); Carbon Dioxide 27 mEq/L (23-29); Chloride 108 mEq/L (98-107); Chol/HDL Ratio 5.3 (0-4.9); Cholesterol 160 mg/dL (< 200); Glucose 107 mg/dL (70-105); HDL Cholesterol 30 mg/dL (40-59); LDL Cholesterol,Calculated 99 mg/dL (0-99); Osmolality,Calculated 294 (280-300); Potassium 3.7 mEq/L (3.5-5.1); Sodium 141 mEq/L (136-145); Triglycerides 155 mg/dL (< 150); eGFR For African Americans > 60 (> 60); eGFR For Non-African Americans > 60 (> 60)
[2019-08-15 06:51] VITALS: BP 111/74
--- NOTE | 2019-08-15 07:56 | Electrocardiograph Report ---
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
[2019-08-15] MEDS ORDERED: Vortioxetine Hydrobromide [Trintellix] 5 MG PO SCH (09:00)
[2019-08-15] MEDS ORDERED: lamoTRIgine 100 MG TABLET PO SCH (09:00)
[2019-08-15] MEDS ORDERED: amLODIPine 5 MG TABLET PO SCH (09:00)
--- NOTE | 2019-08-15 14:21 | Discharge Summary ---
Date of Encounter: 08/15/19 Time of Encounter: 14:19 - Discharge Diagnosis (1) Chest pain Priority: Primary Status: Acute Qualifiers: Chest pain type: precordial pain Qualified Code(s): R07.2 - Precordial pain (2) Elevated lipase Priority: Secondary Status: Acute (3) Anxiety Priority: Secondary Status: Acute (4) Depression Priority: Secondary Status: Chronic Qualifiers: Depression Type: major depressive disorder Major depression recurrence: recurrent Active/Remission status: in remission of unspecified degree Qualified Code(s): F33.40 - Major depressive disorder, recurrent, in remission, unspecified (5) HTN (hypertension) Priority: Secondary Status: Chronic Qualifiers: Hypertension type: essential hypertension Qualified Code(s): I10 - E ssential (primary) hypertension (6) DVT prophylaxis Priority: Secondary Status: Acute Hospital course: Mr. Pollack is a 58 year old male who presented with left-sided chest pain. His HEART score is 3 represent low probability for an MACE but patient EKG this morning was concerning for ST segment depressions in anterolateral leads. An exercise nuclear stress test was therefore ordered which came back negative for ischemia and infarct. Patient will be discharged with analgesia for chest pain and to follow-up with his PCP as outpatient. Discharge discussed with: patient, family, nurse Time spent discussing smoking cessation with patient: more than 10 minutes - Time Spent with Patient Total time spent providing and/or coordinating discharge services: Time spent: Greater than 30 minutes (40 minutes) - Discharge Medications Prescriptions: New Lidocaine Patch [Lidoderm 5% patch] 1 each TP DAILY #10 adh..patch Continued Sertraline [Zoloft] 150 mg PO DAILY Brexpiprazole [Rexulti] 3 mg PO HS Losartan Potassium 100 mg PO HS lamoTRIgine [Lamictal Xr] 200 mg PO DAILY clonazePAM [Clonazepam] 1 mg PO BID PRN PRN Reason: Anxiety Amlodipine Besylate 10 mg PO DAILY Vortioxetine Hydrobromide [Trintellix] 5 mg PO DAILY Home Medications: Amlodipine Besylate 10 mg PO DAILY 02/15/19 [History] Brexpiprazole [Rexulti] 3 mg PO HS 02/15/19 [History] Losartan Potassium 100 mg PO HS 02/15/19 [History] Sertraline [Zoloft] 150 mg PO DAILY 02/15/19 [History] clonazePAM [Clonazepam] 1 mg PO BID PRN 02/15/19 [History] lamoTRIgine [Lamictal Xr] 200 mg PO DAILY 02/15/19 [History] Vortioxetine Hydrobromide [Trintellix] 5 mg PO DAILY 08/14/19 [History] Lidocaine Patch [Lidoderm 5% patch] 1 each TP DAILY #10 adh..patch 08/15/19 [Rx] Allergies/Adverse Reactions: Allergy/AdvReac Type Severity Reaction Status Date / Time Penicillins [PCN] AdvReac Swelling Verified 08/14/19 12:38 of Lip/Tongue/Throat Date of admission: 08/14/19 15:51 Primary care physician: Angeles Acosta - Constitutional Vitals: Temp Pulse Resp BP Pulse Ox 36.4 C L 70 14 111/74 98 08/15/19 06:49 08/15/19 06:49 08/15/19 06:49 08/15/19 06:49 08/15/19 06:49 Exam: GENERAL: Not in distress. Alert and Oriented HEENT: EOMI, PERRLA MOUTH: Moist oral mucosa NECK:No JVD, No lymph nodes. CHEST AND LUNGS: Normal breath sounds, no wheezes or crackles HEART: S1 and S2 normal, no murmurs ABDOMEN: Soft, nontender, no organomegaly SKIN: Normal color, no rashes , no lesions EXTREMITIES: No deformity, no edema, no tenderness, no joint swelling or clubbing NEUROLOGICAL: Normal cognition, normal motor and sensory exam. - Patient Status Disposition: Home, Self-Care Condition: Good Overall status at discharge: patient is progressing back to baseline - Discharge Instructions Follow Up With: Luisa Wilson DO [Primary Care Provider] - 08/19/19 10:00 am - Diet and Activity Activity: resume usual activities as tolerated Diet: low fat, low cholesterol
--- NOTE | 2019-08-15 18:44 | Electrocardiograph Report ---
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
== END 2019-08-15 15:41 | disposition home or self-care (01) ==
LOC: 3BNU 12:37 → EMEROOARM 12:37 → SUATTDRO 15:51 → 3BNU 16:26
PROVIDERS: ADMIT Internal Medicine; ATTEND Internal Medicine